=== PATIENT | female | born 1970 | race Caucasian/White ===

== ENCOUNTER 2023-08-30 16:49 | Emergency (ER) | payer OTHER, SELFPAY ==
[2023-08-30 17:01] VITALS: BP 136/77
--- NOTE | 2023-08-30 19:26 | ED.MUSCINJ ---
HPI-Injury
General
Chief Complaint: Musculo-Skeletal Complaint
Time Seen by Provider: 08/30/23 19:02
Travel History
Have you had any contact with someone who has COVID-19?: No
Do you have any symptoms of coronavirus? Fever > 100 degrees, chills, cough, shortness of breath, sore throat, loss of taste or smell, muscle aches, or headache?: No
History of Present Illness-Injury
Initial Injury comments:
53-year-old female with history of hyperlipidemia presenting to the emergency department for left ankle pain. Patient reports earlier today she got caught in a hole [place] her neighbor's [place] and twisted her left ankle. She has since been able to bear
weight, however with pain. Notes left ankle pain and swelling. She tried ice and ibuprofen. Denies numbness or tingling. Denies any additional injuries from the fall. Denies fever. Denies chest pain, difficulty breathing, or additional acute
medical complaints
Past History
Past History
ED Past Medical History: None
ED Past Surgical History: Gynecological
Social History
Tobacco: Non-smoker
Alcohol: None
Drug: None
Personal:
Living: with family
Employment: Employed
Phy Exam
Physical Exam
Physical Exam:
GENERAL: Alert , in no apparent distress
EYE: pupils equal and reactive
NECK: Supple, no significant adenopathy.
ENT: o/p clr, mmm.
CARDIAC: Regular rate
LUNGS: no acute respiratory distress
ABDOMEN: No distention
NEUROLOGICAL: Alert and oriented, no focal neuro deficits
SKIN: Warm and dry, skin intact.
MUSCULOSKELETAL: Moderate swelling to the left lateral malleoli. Range of motion grossly intact. Distal sensation and pulses intact. No erythema or warmth
PSYCH: Normal and appropriate interaction.
Injury Course
Orders/Labs/Results
Orders:
Orders
08/30/23 17:03
Ankle, left 3 view CR [CR Ankle - Left Min 3 Views ] Urgent
Comment:
Reason For Exam: tripped twisted left ankle
08/30/23 19:20
Acetaminophen [Tylenol] 1,000 mg PO NOW STA
MDM/Problems Addressed
MDM/Problems Addressed:
53-year-old female with history of hyperlipidemia presenting for left ankle pain and swelling after tripping earlier today. Vital signs within normal limits.
On exam, patient resting comfortably, obvious swelling to the left lateral malleoli. No infectious findings without erythema or warmth. No neurovascular compromise. Range of motion grossly intact. Patient had x-ray imaging completed prior to for
acute fracture or malalignment. Ultimately suspect ligamentous injury. Patient notes that she has had pain with ambulation. For this reason we will place an Ortho boot. Tylenol administered for pain. Otherwise feel stable for discharge with
orthopedic follow-up. Advised continued rest/ice/elevation/compression. Patient verbalized understanding.
*Critical Care Note
Total Time (30-74mins, 75-104mins- exclusive of procedures): Not Applicable
ED Attending Note
-
Portions of this chart may have been created with voice recognition software.� Occasional wrong word or��sound alike� substitutions may have occurred due to the inherent limitations of voice recognition software.
Discharge Plan
Departure
Prescriptions:
No Action
ibuprofen 200 mg tablet
400 - 600 mg PO Q6HPRN PRN (Reason: moderate pain) Qty: 1 0RF
polyethylene glycol 3350 [Miralax] 17 gram/dose powder
4 g PO DAILY Qty: 119 0RF
Rx Instructions:
Start laxative such as MiraLAX if no bowel movement within 24 hours of surgery as long as no nausea, vomiting and starting to pass gas
acetaminophen [Tylenol Extra Strength] 500 mg tablet
1,000 mg PO Q6HPRN PRN (Reason: mild pain) Qty: 1 0RF
oxycodone 5 mg tablet
5 mg PO Q4HPRN PRN (Reason: breakthrough/severe pain) Qty: 7 0RF
Interventions
Interventions:
*Risk Screen - Suicide Last Done: 08/30/23 18:29
*General Assessment Last Done: 08/30/23 18:29
*Neglect/Abuse Screening Last Done: 08/30/23 18:29
*ED COVID-19 Vaccine History Last Done: 08/30/23 17:01
Discharge Date and Time
Print Language: PORTUGUESE
[2023-08-30] MEDS: TYLENOL 1000 MG PO (19:40)
[2023-08-30 19:43] VITALS: BP 129/71
== END 2023-08-30 19:52 | disposition home or self-care (01) ==
LOC: EMR 16:49
PROVIDERS: EMERGENCY PHYSICIAN Student in an Organized Health Care Education/Training Program
DX: S93.402A Sprain of unspecified ligament of left ankle, initial encounter (principal); X50.1XXA Overexertion from prolonged static or awkward postures, initial encounter; E78.5 Hyperlipidemia, unspecified
CPT/HCPCS: 99283; 73610

== ENCOUNTER → 2023-11-01 17:17 | Outpatient (REF) | payer OTHER, SELFPAY | LOC: WDC 17:17 | PROVIDERS: ATTENDING PHYSICIAN Physician Assistant | DX: Z12.31 Encounter for screening mammogram for malignant neoplasm of breast (principal) | CPT/HCPCS: 77063; 77067 ==

== ENCOUNTER → 2024-02-17 09:53 | Outpatient (REF) | payer OTHER, SELFPAY | LOC: RCS 09:53 | PROVIDERS: ATTENDING PHYSICIAN Nurse Practitioner Family; OTHER PHYSICIAN Internal Medicine Cardiovascular Disease; REFERRING PHYSICIAN Internal Medicine Cardiovascular Disease | DX: R10.11 Right upper quadrant pain (principal); I49.3 Ventricular premature depolarization | CPT/HCPCS: 93005 ==

== ENCOUNTER → 2024-02-19 08:14 | Outpatient (REF) | payer OTHER, SELFPAY ==
[2024-02-19 09:51] LABS: % Basophils 0.4 % (0-2); % Eosinophils 2.3 % (0-6); % Immature Granulocytes 0.4 % (0-0.5); % Lymphocytes 39.5 % (20.5-51.1); % Monocytes 6.6 % (1.7-9.3); % Neutrophils 50.8 % (42.2-75.2); Absolute Eosinophils 0.1 10^3/uL (0-0.7); Absolute Lymphocytes 2.1 10^3/uL (1.2-3.4); Absolute Monocytes 0.4 10^3/uL (0.1-0.6); Absolute Neutrophils 2.7 10^3/uL (1.4-6.5); Hematocrit 38.5 % (37.0-47.0); Hemoglobin 13.2 g/dL (12.0-16.0); Mean Corp Hgb Conc. 34.3 g/dL (33.0-37.0); Mean Corpuscular Hgb 31.4 pg (27.0-31.0); Mean Corpuscular Volume 91.7 fL (81.0-99.0); Mean Platelet Volume 11.4 fL (7.4-10.4); Nucleated Red Blood Cells % 0 %; Platelet Count 206 10^3/uL (130-400); White Blood Cell Count 5.3 10^3/uL (4.8-10.8)
[2024-02-19 10:17] LABS: ALT (SGPT) 28 U/L (0-35); AST (SGOT) 29 U/L (14-36); Albumin 4.2 g/dl (3.5-5.0); Alkaline Phosphatase 54 U/L (38-126); Blood Urea Nitrogen 16 mg/dl (7-17); Calcium 9.2 mg/dl (8.4-10.2); Carbon Dioxide 29 mmol/L (22-30); Chloride 104 mmol/L (98-107); Glucose 80 mg/dl (70-99); HDL Cholesterol 73 mg/dl; LDL Cholesterol, Calculated 84 mg/dl; Potassium 4.8 mmol/L (3.5-5.1); Sodium 140 mmol/L (135-145); Total Bilirubin 0.7 mg/dl (0.2-1.3); Total Cholesterol 168 mg/dl (50-199); Total Protein 6.8 g/dl (6.3-8.2); Triglyceride 57 mg/dl (10-149); Very Low Density Lipoprotein 11 mg/dl (0-30); eGFR > 60.00
[2024-02-19 10:48] LABS: TSH Reflex To Free T4 1.66 uIU/ml (0.47-4.68)
== END ==
LOC: REG 08:14
PROVIDERS: ATTENDING PHYSICIAN Nurse Practitioner Family
DX: R10.11 Right upper quadrant pain (principal); I49.3 Ventricular premature depolarization; Z00.00 Encounter for general adult medical examination without abnormal findings; E78.00 Pure hypercholesterolemia, unspecified
CPT/HCPCS: 36415; 80053; 80061; 84443; 85025

== ENCOUNTER → 2024-03-10 16:55 | Outpatient (REF) | payer OTHER, SELFPAY | LOC: RAD 16:55 | PROVIDERS: ATTENDING PHYSICIAN Nurse Practitioner Family; FAMILY PHYSICIAN Physician Assistant | DX: R10.11 Right upper quadrant pain (principal) | CPT/HCPCS: 76700 ==

== ENCOUNTER → 2024-09-15 09:09 | Outpatient (REF) | payer OTHER, SELFPAY | LOC: HWRAD 09:09 | PROVIDERS: ATTENDING PHYSICIAN Internal Medicine Cardiovascular Disease; FAMILY PHYSICIAN Physician Assistant | DX: I42.9 Cardiomyopathy, unspecified (principal); E78.5 Hyperlipidemia, unspecified | CPT/HCPCS: 75571 ==

== ENCOUNTER → 2024-10-09 17:46 | Outpatient (REF) | payer OTHER, SELFPAY | LOC: RAD 17:46 | PROVIDERS: ATTENDING PHYSICIAN Internal Medicine Hematology & Oncology; FAMILY PHYSICIAN Physician Assistant | DX: R91.8 Other nonspecific abnormal finding of lung field (principal) | CPT/HCPCS: 71260; 74177; Q9967 ==

== ENCOUNTER → 2024-11-01 14:31 | Outpatient (REF) | payer OTHER, SELFPAY | LOC: WDC 14:31 | PROVIDERS: ATTENDING PHYSICIAN Physician Assistant | DX: Z12.31 Encounter for screening mammogram for malignant neoplasm of breast (principal) | CPT/HCPCS: 77063; 77067 ==

== ENCOUNTER → 2024-11-13 10:17 | Outpatient (REF) | payer OTHER, SELFPAY | LOC: WDC 10:17 | PROVIDERS: ATTENDING PHYSICIAN Physician Assistant | DX: R92.8 Other abnormal and inconclusive findings on diagnostic imaging of breast (principal) | CPT/HCPCS: 76642 ==